=== PATIENT | female | born 1950 | race Caucasian/White ===

== ENCOUNTER 2016-05-03 07:01 | Outpatient (CLI) | payer MEDICARE, OTHER ==
[~2016-05-03] VITALS: Ht 167.6 cm; Wt 113.4 kg
[~2016-05-03 07:01] MED LIST: ALDACTONE 25MG25 M1 PO; AMOXICILLIN 8751 TAB PO; AVINZA60 MG PO; BENTYL 10MG10 MG/CAP PO; BENTYL 20MG20 MG/TAB PO; BIOTENE MOIST44.3 ML PO; CATAPRES 0.1MG0.1 MG PO; CELEBREX 200MG200 MG PO; CELEXA40 MG PO; COUMADIN 5MG5 MG/TAB PO; COUMADIN 6MG6 MG/TAB PO; COUMADIN4 MG PO; CULTURELLE10 Billion PO; CYMBALTA 60MG60 MG PO; DESYREL 50MG50 MG PO; DIAMOX 250MG250 MG PO; DULCOLAX S10 MG/SUPP RC; ENULOSE10 GM/15 M PO; ENULOSE10 GM/151 PO; FERROUS SU325 MG/TAB PO; FOLIC ACID 40400 MCG PO; INTRATHECAL PUMP; IRON325 M2 PO; IRON65 MG PO; JANTOVEN5 MG PO; K-DUR 2020 MEQ PO; K-TAB20 PO; KLOR-CON M2020 MEQ PO; LAMICTAL 100MG100 MG PO; LANOXIN 0.25M0.25 MG PO; LASIX 40MG TABL40 MG PO; LASIX 80MG TABL80 MG PO; LIORESAL 1010 MG/TAB PO; MINERAL OIL TP; MIRALAX PA17 GM/Dose PO; MULTIPLE VITAMI1 CAP PO; NASAL MOISTURIZ45 ML NS; NEXIUM 40MG40 MG PO; NORCO 325 MG-51 TAB PO; NORVASC 10MG10 MG PO; NORVASC 5MG5 MG/TAB PO; OXYGEN; OYSCO 500500 M1 PO; PHENERGAN 25 TA25 MG PO; PREDNISONE10 MG PO; PREVIDENT DE; PROAIR HFA0.09 MG/AC IH; PROVENTIL0.09 MG/A1 IH; RESTORIL 1515 MG/CAP PO; ROXICODONE 55 MG/TAB PO; ROXICODONE15 MG PO; RT ALBUTER2.5 MG/0.5 IH; SALINE FLUSH; SALINE NS; SENNA PLUS 50 M1 TA1 PO; SENOKOT S 50 MG1 TAB PO; SINGULAIR 110 MG/TAB PO; SLEEP AID50 MG PO; TAMBOCOR 1100 MG/TAB PO; TIKOSYN0.5 MG PO; TOPROL XL100 MG PO; TOPROL XL200 MG PO; VITAMIN C500 MG PO; VITAMIN D3400 IU PO; XARELTO20 MG PO; ZESTRIL 10MG10 MG PO; ZESTRIL 20MG TA20 MG PO; ZOLOFT 100MG100 MG PO; ZYRTEC 10MG10 MG PO; ZYRTEC ALLERGY10 MG PO; [UNRECOGNIZED DRUG - OTHER]; [UNRECOGNIZED DRUG - OTHER]
[2016-05-03 07:26] VITALS: BP 152/113; PULSE 59; TEMP 98.3
[2016-05-03] MEDS ORDERED: LASIX 40MG TABL40 MG PO (08:00)
[2016-05-03] MEDS ORDERED: PRINIVIL20 MG PO (08:01)
[2016-05-03] MEDS ORDERED: NORVASC 10MG10 MG PO (08:03)
[2016-05-03] MEDS ORDERED: PROBIOTIC FORMU1 CAP PO (08:03)
[2016-05-03] MEDS ORDERED: BIPAP (08:04)
[2016-05-03] MEDS ORDERED: ROXICODONE 55 MG/TAB PO (08:06)
[2016-05-03] MEDS ORDERED: PROAIR HFA0.09 MG/AC IH (08:07)
[2016-05-03] MEDS ORDERED: MORPHINE PUMP (08:08)
[2016-05-03] MEDS ORDERED: TAMBOCOR50 MG PO (08:09)
[2016-05-03] MEDS ORDERED: CLEOCIN HCL300 MG PO (09:32)
== END 2016-05-03 09:57 | disposition home or self-care (01) ==
LOC: COL.RAD 07:01
DX: I48.0 Paroxysmal atrial fibrillation (principal); I50.9 Heart failure, unspecified; I10 Essential (primary) hypertension; J44.9 Chronic obstructive pulmonary disease, unspecified
CPT/HCPCS: C1764

== ENCOUNTER 2018-12-09 08:58 | Day surgery (SDC) | payer MEDICARE, OTHER ==
[~2018-12-09] VITALS: Ht 167.6 cm; Wt 115.2 kg
[~2018-12-09 08:58] MED LIST changes: +BIPAP; +CLEOCIN HCL300 MG PO; +MORPHINE PUMP; +PRINIVIL20 MG PO; +PROBIOTIC FORMU1 CAP PO; +TAMBOCOR50 MG PO
[2018-12-09] MEDS ORDERED: TOPROL XL 50MG50 MG PO (09:42)
[2018-12-09] MEDS ORDERED: K-DUR20 MEQ PO (09:44)
[2018-12-09] MEDS ORDERED: RESTORIL 1515 MG/CAP PO (09:46)
[2018-12-09] MEDS ORDERED: ZYRTEC 10MG10 MG PO (09:46)
[2018-12-09] MEDS ORDERED: COZAAR100 MG PO (09:47)
[2018-12-09] MEDS ORDERED: ZAROXOLYN 2.52.5 MG PO (09:47)
[2018-12-09] MEDS ORDERED: VENTOLIN0.09 MG IH (09:48)
[2018-12-09] MEDS ORDERED: TESSALON P100 MG/CAP PO (09:48)
[2018-12-09 09:49] VITALS: BP 90/65; PULSE 66; TEMP 97.7
[2018-12-09 09:53] LABS: CALCIUM 8.9 mg/dL (8.4-10.2); CREATININE, serum 0.7 (0.52-1.25)
[2018-12-09 10:01] LABS: POTASSIUM 2.9 mmol/L (3.4-5.0)
--- NOTE | 2018-12-09 10:05 | NUR ---
Lab personnel called with critical result from BMP. K is 2.9. This RN reported this result to Dr. Goyal and Patrick Hurt CRNA at 1004 and no further orders received.
[2018-12-09 11:20] VITALS: BP 118/51; PULSE 67; TEMP 97.2
--- NOTE | 2018-12-09 11:20 | NUR ---
TO BAY 5 PER CART FROM ENDOSCOPY. ALERT ORIENTED X 3, TALKING WITH STAFF AND FAMILY. AMBULATED TO RECLINER WITHA ASSIST AND TOLERATED WELL. PATIENT WEARING 02 AT 2L NER NC. RECEIVED WATER AND COFFEE
[2018-12-09 11:35] VITALS: BP 120/75; PULSE 63
--- NOTE | 2018-12-09 11:35 | NUR ---
DR CHAPIN INTO TALK WITH PATIENT, AND DAUGHTER.
[2018-12-09 11:48] VITALS: BP 121/52; PULSE 64
--- NOTE | 2018-12-09 12:10 | NUR ---
DAUGHTER AND AT BEDSIDE RECEIVED DISCHARGE INSTRUCTIONS AND VERBALIZED UNDERSTANDING. INSTRUCTED PATIENT TO FOLLOW UP WITH PRIMARY PHYSICIAN CONCERNING LAB(LOW POTASSIUM) ATE 100% AND TOLERATED WELL.
--- NOTE | 2018-12-09 12:15 | NUR ---
FLUSHED PORT A CATHETER WITH NS 10CC AND HEPARIN 500UNITS AND COVERED WITH BANDAIDE.
--- NOTE | 2018-12-09 12:20 | NUR ---
DAUGHTER ASSISTING PATIENT DRESSED. APPLIED OWN O2 ON AT 2L PER NC.
--- NOTE | 2018-12-09 12:30 | NUR ---
DISCHARGED PER WC BY NURSING STAFF TO PRIVATE CAR IN CARE OF DAUGHTER AND .
== END 2018-12-09 12:30 | disposition home or self-care (01) ==
LOC: SDCO 08:58
PROVIDERS: Nurse Anesthetist, Certified Registered
DX: K52.9 Noninfective gastroenteritis and colitis, unspecified (principal); K56.699 Other intestinal obstruction unspecified as to partial versus complete obstruction; K63.89 Other specified diseases of intestine; K56.609 Unspecified intestinal obstruction, unspecified as to partial versus complete obstruction; Z97.8 Presence of other specified devices; K64.1 Second degree hemorrhoids; K21.9 Gastro-esophageal reflux disease without esophagitis; I48.91 Unspecified atrial fibrillation; J44.9 Chronic obstructive pulmonary disease, unspecified; G47.33 Obstructive sleep apnea (adult) (pediatric); I10 Essential (primary) hypertension; I35.1 Nonrheumatic aortic (valve) insufficiency; M79.7 Fibromyalgia; G89.29 Other chronic pain; M19.90 Unspecified osteoarthritis, unspecified site; Z79.01 Long term (current) use of anticoagulants; Z79.899 Other long term (current) drug therapy; F32.9 Major depressive disorder, single episode, unspecified; J98.4 Other disorders of lung; Z90.710 Acquired absence of both cervix and uterus; Z90.49 Acquired absence of other specified parts of digestive tract; Z88.1 Allergy status to other antibiotic agents; Z88.8 Allergy status to other drugs, medicaments and biological substances; Z91.048 Other nonmedicinal substance allergy status; Z95.818 Presence of other cardiac implants and grafts; R06.89 Other abnormalities of breathing; K27.9 Peptic ulcer, site unspecified, unspecified as acute or chronic, without hemorrhage or perforation; Z96.651 Presence of right artificial knee joint
CPT/HCPCS: C1726; J1644; J2370; J2704; J3010; J7030

== ENCOUNTER 2020-11-19 10:57 | Day surgery (SDC) | payer MEDICARE, OTHER ==
[~2020-11-19] VITALS: Ht 167.6 cm; Wt 110.6 kg
--- NOTE | 2020-11-19 10:44 | NUR ---
Initial visit; Post surgical, Manager Of Administration offering God's blessings and prayers of thankfulness that all is well with her report from her 'Procedure.'
[~2020-11-19 10:57] MED LIST changes: +COZAAR100 MG PO; +K-DUR20 MEQ PO; +TESSALON P100 MG/CAP PO; +TOPROL XL 50MG50 MG PO; +VENTOLIN0.09 MG IH; +ZAROXOLYN 2.52.5 MG PO
[2020-11-19 12:46] VITALS: BP 147/69; PULSE 60; TEMP 99
[2020-11-19] MEDS ORDERED: CALCIUM 600MG+D1 TAB PO (13:00)
[2020-11-19] MEDS ORDERED: COZAAR100 MG PO (13:01)
[2020-11-19] MEDS ORDERED: NEXIUM 40MG40 MG PO (13:05)
[2020-11-19] MEDS ORDERED: FASENRA30 MG/1 ML SQ (13:13)
[2020-11-19] MEDS ORDERED: OXYGEN (13:14)
[2020-11-19 14:10] VITALS: BP 150/96; PULSE 70
--- NOTE | 2020-11-19 14:10 | NUR ---
Pt to bay 8 via cart from [facility]. Pt drowsy, but awake. Pt ambulates to recliner with stand by assistance. O2 on at 2 liters via nasal canula. Warm blanket provided. in room. Pudding and water given per pt request. Will continue to monitor. Call light within reach.
[2020-11-19 14:25] VITALS: BP 155/69; PULSE 60
--- NOTE | 2020-11-19 14:25 | NUR ---
Pt continues to rest. Denies needs. Tolerating po food and fluids without difficulties. Call light within reach.
[2020-11-19 14:40] VITALS: BP 139/91; PULSE 54
--- NOTE | 2020-11-19 14:40 | NUR ---
Pt resting. Denies needs. Call light within reach.
[2020-11-19 14:55] VITALS: BP 154/77; PULSE 58
--- NOTE | 2020-11-19 14:55 | NUR ---
Discharge instructions reviewed. Pt voices understanding. Sarah cath flushed with 10ML NS followed by Heprin 500 units. Port deaccessed with all parts intact. Bandaid placed. Pt tolerated process without c/o discomfort. Pt up to dress. Call light within reach.
--- NOTE | 2020-11-19 15:10 | NUR ---
Pt escorted to private car via wheel chair. Pt accompanied home by her .
== END 2020-11-19 15:10 | disposition home or self-care (01) ==
LOC: SDCO 10:57
DX: K56.600 Partial intestinal obstruction, unspecified as to cause (principal); K64.0 First degree hemorrhoids; R19.7 Diarrhea, unspecified; R19.4 Change in bowel habit; K62.5 Hemorrhage of anus and rectum; I10 Essential (primary) hypertension; J45.909 Unspecified asthma, uncomplicated; I48.91 Unspecified atrial fibrillation; J44.9 Chronic obstructive pulmonary disease, unspecified; M19.90 Unspecified osteoarthritis, unspecified site; K21.9 Gastro-esophageal reflux disease without esophagitis; Z98.0 Intestinal bypass and anastomosis status; Z79.899 Other long term (current) drug therapy; Z79.4 Long term (current) use of insulin; Z79.52 Long term (current) use of systemic steroids
CPT/HCPCS: J1644; J2704; J7030

== ENCOUNTER 2021-05-24 11:40 | Day surgery (SDC) | payer MEDICARE, OTHER ==
[~2021-05-24] VITALS: Ht 167.6 cm; Wt 109.7 kg
[~2021-05-24 11:40] MED LIST changes: +CALCIUM 600MG+D1 TAB PO; +FASENRA30 MG/1 ML SQ
[2021-05-24] MEDS ORDERED: TAMBOCOR 1100 MG/TAB PO (12:59)
[2021-05-24] MEDS ORDERED: NATURAL IRON65 MG PO (13:00)
[2021-05-24] MEDS ORDERED: NEXIUM 40MG40 MG PO (13:02)
[2021-05-24 13:55] VITALS: BP 166/59; PULSE 69; TEMP 98.6
[2021-05-24 15:45] VITALS: BP 149/53; PULSE 73; TEMP 97.6
--- NOTE | 2021-05-24 15:45 | NUR ---
Patient arrived from PACU drowsy, but oriented. Verbal report obtained from ELIZABETH Quintero. Vitals obtained and her was brought into the room. Side rails x2. Call lopez is within reach on her lap. The patient is tolerating ice water well. Denies pain. Per report: 40ml of clear yellow urine was drained from her hayes.
[2021-05-24 16:00] VITALS: BP 155/53; PULSE 74
--- NOTE | 2021-05-24 16:00 | NUR ---
Vitals obtained. The patient is tolerating apple sauce. Denies nausea. No vomiting. Call lopez remains within reach.
[2021-05-24 16:15] VITALS: BP 164/55; PULSE 79
--- NOTE | 2021-05-24 16:15 | NUR ---
Vitals obtained and the patient expressed desire to be discharged. RN provided a warm muffin for the patient and her .
--- NOTE | 2021-05-24 16:30 | NUR ---
The patients hayes was switched to a leg bag, ports scrubbed with alcohol pad. DC instructions and educational material was reviewed with the patient and her . Information was provided about how to change hayes to leg bag and leg bag to hayes. The RN noted that the leg bag has a "top" and a bottom, where the top needs to be upright. The patient acknowledged that she will take out her hayes on Thrusday, per DC instructions. The patient verbalized understanding her balloon has 20ml of fluid that must be taken out before removing catheter. RN told the patient to removed the full 20ml and to try again to make sure the balloon is completely empty. Patient verbalized understanding. The patient also verbalized understanding to keep the hayes below her waist to reduce risk of UTI. The patient verbalized understanding to use the hayes at night and the leg bag when needed. Supplies provided: leg bag, hayes, 20 alcohol pads, 3 pks of 4x4's, cloth wipes, 20ml syringe. Port was deaccessed by ELIZABETH Mao per protocol. Soft bandage applied. No bleeding noted. The patient was then assisted with changing into her personal clothes. Nasal cannula was disconnected from the wall and hooked into her own device. The patient took the Nasal cannula home. The patient was provided PO Tylenol and then dismissed from [facility] via wheelchair by ELIZABETH Mao to the patient entrence and transferred into the care of her who is present to drive. The patient has her DC packet, supplies and personal belongings. Denies further questions. Denies concerns.
[2021-05-24 17:03] VITALS: BP 159/63; PULSE 73; TEMP 97.2
== END 2021-05-24 17:30 | disposition home or self-care (01) ==
LOC: SDCO 11:40
DX: N36.2 Urethral caruncle (principal); I48.91 Unspecified atrial fibrillation; J44.9 Chronic obstructive pulmonary disease, unspecified; E11.40 Type 2 diabetes mellitus with diabetic neuropathy, unspecified; I11.0 Hypertensive heart disease with heart failure; I50.30 Unspecified diastolic (congestive) heart failure; E66.2 Morbid (severe) obesity with alveolar hypoventilation; G89.29 Other chronic pain; K21.9 Gastro-esophageal reflux disease without esophagitis; E87.6 Hypokalemia; Z97.8 Presence of other specified devices; Z99.81 Dependence on supplemental oxygen; Z79.01 Long term (current) use of anticoagulants; Z85.828 Personal history of other malignant neoplasm of skin
CPT/HCPCS: J0360; J0690; J1100; J1644; J1885; J2405; J2704; J3010; J7120

== ENCOUNTER 2021-07-22 10:24 | Day surgery (SDC) | payer MEDICARE, OTHER ==
[~2021-07-22] VITALS: Ht 167.6 cm; Wt 109.1 kg
[~2021-07-22 10:24] MED LIST changes: +NATURAL IRON65 MG PO
[2021-07-22 12:40] VITALS: BP 147/65; PULSE 57; TEMP 96.8
[2021-07-22 13:25] VITALS: BP 148/64; PULSE 57; TEMP 97.9
--- NOTE | 2021-07-22 13:25 | NUR ---
PT TO BAY 8 VIA CART FROM ENDO LAB, WALKED TO CHAIR, HAS 02 PER HOME. FAMILY IN ROOM. CALL LIGHT IN REACH, TAKES DRINK AND SNACK
[2021-07-22 13:40] VITALS: BP 147/62; PULSE 58
[2021-07-22 14:00] VITALS: BP 126/64; PULSE 57
--- NOTE | 2021-07-22 14:00 | NUR ---
DR JEFFERY TALK WITH PT AND FAMILY, DISCHARGE INST. GIVEN WITH PRECAUTIONS AND FOLLOWUP WITH VERBAL UNDERSTANDING. IV PORT DEACCESSED AFTER FLUSHING PER PROTOCOL AND BANDAID OVER SITE, CLEAN AND DRY. PT UP AND DRESSED, WALKED TO B/R THEN DISCHARGED VIA W/C WITH HOME 02 TO CAR AT 1415
== END 2021-07-22 14:15 | disposition home or self-care (01) ==
LOC: SDCO 10:24
DX: K91.89 Other postprocedural complications and disorders of digestive system (principal); K56.699 Other intestinal obstruction unspecified as to partial versus complete obstruction; K56.609 Unspecified intestinal obstruction, unspecified as to partial versus complete obstruction; R93.3 Abnormal findings on diagnostic imaging of other parts of digestive tract; K62.6 Ulcer of anus and rectum; C68.0 Malignant neoplasm of urethra; K64.0 First degree hemorrhoids; G47.33 Obstructive sleep apnea (adult) (pediatric); Z99.81 Dependence on supplemental oxygen; Z98.0 Intestinal bypass and anastomosis status; Z99.89 Dependence on other enabling machines and devices
CPT/HCPCS: J1644; J2704; J7120